=== PATIENT | male | born 1960 | race American Indian/Alaskan Native ===

== ENCOUNTER 2021-08-06 19:08 | Emergency (ER) | payer BC, OTHER ==
[2021-08-06] MEDS ORDERED: Cyclobenzaprine 10 MG Tab PO ONE (19:09)
[2021-08-06] MEDS ORDERED: Acetaminophen/HYDROcodone 325-5 MG Tab PO ONE (19:09)
--- NOTE | 2021-08-06 19:47 | CT ---
PROCEDURE INFORMATION: Exam: CT Cervical Spine Without Contrast Exam date and time: 08/06/2021 7:28 PM Age: 61 years old Clinical indication: Other: Pain TECHNIQUE: Imaging protocol: Computed tomography images of the cervical spine without contrast. Radiation optimization: All CT scans at this facility use at least one of these dose optimization techniques: automated exposure control; mA and/or kV adjustment per patient size (includes targeted exams where dose is matched to clinical indication); or iterative reconstruction. COMPARISON: No relevant prior studies available. FINDINGS: Vertebrae: There is [id number] grade disc space narrowing within the cervical spine. Endplate sclerosis and endplate osteophyte formation are present. Vertebral body height and alignment are well maintained. No fractures are identified. Mild to moderate grade degenerative changes are noted within the facet joints. The facet joints remain in anatomic alignment. A curvilinear bone fragment is present superior to the tip of the and on toilet. Margins of the bone fragment are well corticated suggesting it could represent sequela of degenerative change or old trauma. Prevertebral Space: There is no prevertebral soft tissue swelling. Lungs: Lung apices are normal. IMPRESSION: 1. No definite acute fractures are identified. Small curvilinear bone fragment near the tip of the dens may represent sequela of old trauma or related to degenerative change. There is no soft tissue swelling in the region to suggest that this is an acute fracture.
--- NOTE | 2021-08-06 20:20 | EDM.PDOC ---
ED HPI GENERAL MEDICAL PROBLEM - General Chief Complaint: Neck Problem Stated Complaint: HEAD AND NECK INJURY Time Seen by Provider: 08/06/21 19:25 Source of Information: Reports: Patient, RN History Limitations: Reports: No Limitations - History of Present Illness INITIAL COMMENTS - FREE TEXT/NARRATIVE: ED with c/o midline neck ran worse with movement, greateron left, No numbness tingling or weakness. Reports at work yesterday and hit head on large piece of eren, bruise to top of head. no loss of consciousness. No blurred vision, No nausea. Neck Pain Score (Numeric/FACES): 8 - Related Data Allergies Allergy/AdvReac Type Severity Reaction Status Date / Time aspirin Allergy Hives Verified 08/06/21 19:26 Penicillins Allergy Hives Verified 08/06/21 19:26 Home Meds: Home Meds Fenofibric Acid (Choline) [Fenofibric Acid] 45 mg PO DAILY 03/28/19 [History] Lisinopril 10 mg PO DAILY 03/28/19 [History] Past Medical History - Past Health History Medical/Surgical History: Denies Medical/Surgical History Cardiovascular History: Reports: High Cholesterol, Hypertension - Infectious Disease History Infectious Disease History: Reports: None Social & Family History - Family History Family Medical History: No Pertinent Family History - Tobacco Use Tobacco Use Status *Q: Current Every Day Tobacco User Years of Tobacco use: 45 Packs/Tins Daily: 0.5 - Caffeine Use Caffeine Use: Reports: Coffee - Recreational Drug Use Recreational Drug Use: No ED ROS GENERAL - Review of Systems Review Of Systems: Comprehensive ROS is negative, except as noted in HPI. ED EXAM, UPPER BACK/NECK PAIN - Physical Exam Exam: See Below Exam Limited By: No Limitations General Appearance: Alert, Mild Distress Eye Exam: Bilateral Eye: EOMI Ears Exam: Normal External Exam Nose Exam: Normal Inspection Neck Exam: Tender Lateral. 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, Normal Mood/Affect Psychiatric: Normal Affect, Normal Mood, Tearful Skin Exam: Normal Color, Other Course - Vital Signs Last Recorded V/S: Last Vital Signs Temp 99.1 F 08/06/21 20:10 Pulse 66 08/06/21 20:10 Resp 18 08/06/21 20:10 BP 156/95 H 08/06/21 20:10 Pulse Ox 96 08/06/21 20:10 - Orders/Labs/Meds Meds: Medications Discontinued Medications Generic Name Dose Route Start Last Admin Trade Name Dede PRN Reason Stop Dose Admin Hydrocodone Bitart/Acetaminophen Confirm 08/06/21 20:24 Acetaminophen/Hydrocodone 325-5 Mg Tab Administered 08/06/21 20:25 Dose 2 tab .ROUTE .STK-MED ONE Cyclobenzaprine HCl Confirm 08/06/21 20:22 Cyclobenzaprine 10 Mg Tab Administered 08/06/21 20:23 Dose 20 mg .ROUTE .STK-MED ONE Departure - Departure Time of Disposition: 20:22 Disposition: Home, Self-Care 01 Condition: Good Clinical Impression: Neck pain - Discharge Information *PRESCRIPTION DRUG MONITORING PROGRAM REVIEWED*: No *COPY OF PRESCRIPTION DRUG MONITORING REPORT IN PATIENT CECILIA: No Instructions: Cervical Sprain, [id number] Referrals: PCP,None [Primary Care Provider] - Forms: ED Department Discharge Additional Instructions: alternate tylenol 500mg and ibuprofen 600mg every 4 hours as needed flexeril 10mg one every 8 hours as needed for muscle spasm #14 Hydrocodone/APAP 5/325 one every 8 hours as needed for severe pain #2 clinic follow up next week if not improving Sepsis Event Note (ED) - Evaluation Sepsis Screening Result: No Definite Risk - Focused Exam Vital Signs: Vital Signs Temp Pulse Resp BP Pulse Ox 08/06/21 20:10 99.1 F 66 18 156/95 H 96 08/06/21 19:20 98.7 F 66 18 166/102 H 100
[2021-08-06] MEDS ORDERED: Cyclobenzaprine 10 MG Tab ONE (20:22)
[2021-08-06] MEDS ORDERED: Acetaminophen/HYDROcodone 325-5 MG Tab ONE (20:24)
== END 2021-08-06 20:34 | disposition home or self-care (01) ==
LOC: DL.ED 19:08
DX: M54.2 Cervicalgia (principal); E78.00 Pure hypercholesterolemia, unspecified; I10 Essential (primary) hypertension; Z72.0 Tobacco use; Z88.0 Allergy status to penicillin; Z88.8 Allergy status to other drugs, medicaments and biological substances; Z79.899 Other long term (current) drug therapy
CPT/HCPCS: 72125; 99283; A9270

== ENCOUNTER 2022-02-04 19:30 | Emergency (ER) | payer BC ==
[2022-02-04] MEDS ORDERED: Lidocaine 2% Viscous Solution 15 ML UD PO ONE (19:31)
[2022-02-04] MEDS ORDERED: Acetaminophen/HYDROcodone 325-10 MG Tab PO ONE (19:31)
[2022-02-04] MEDS ORDERED: Clindamycin HCl 150 MG Cap PO ONE ×2 (19:31→19:42)
[2022-02-04] MEDS ORDERED: Clindamycin HCl 150 MG Cap ONE (19:54)
[2022-02-04] MEDS ORDERED: Acetaminophen/HYDROcodone 325-10 MG Tab ONE (19:54)
[2022-02-04] MEDS ORDERED: Lidocaine 2% Viscous Solution 15 ML UD ONE (19:54)
== END 2022-02-04 20:01 | disposition home or self-care (01) ==
LOC: DL.ED 19:30
DX: K04.7 Periapical abscess without sinus (principal); I10 Essential (primary) hypertension; F17.210 Nicotine dependence, cigarettes, uncomplicated; Z88.8 Allergy status to other drugs, medicaments and biological substances; Z88.0 Allergy status to penicillin; Z79.899 Other long term (current) drug therapy
CPT/HCPCS: 99282; 99283; A9270